=== PATIENT | female | born 1950 | race Caucasian/White ===

== ENCOUNTER 2019-01-06 11:59 | Inpatient (IN) | payer MEDICARE, MEDICAID ==
[~2019-01-06] VITALS: Ht 152.4 cm; Wt 72.6 kg
--- NOTE | 2019-01-06 12:04 | NUR ---
PT A/OX4, [facility] S[facility]P PYLORIC SPHINCTER REPAIR. PER FINISH MILL OPERATOR'S REPORT, PT ASPIRATED DURING THE PROCEDURE AND PT SPO2 DESATURATED TO LOW 80'S%. PT ARRIVED TO THE ED ON 6 LPM 02 VIA N/C. SPO2 @ 100% ON 6 LPM O2. VSS. PT DENIES SOB. NO RESPIRATORY DISTRESS NOTED AT THIS TIME. PT DENIES PAIN, C/P, N/V/D, DIZZINESS, HEADACHE.
[2019-01-06] MEDS ORDERED: SUCRALFATE (12:13)
[2019-01-06] MEDS ORDERED: PANTOPRAZOLE (12:13)
[2019-01-06] MEDS ORDERED: ALBUTEROL SULFATE 2.5 MG/3 ML NEBU NEB ONE (12:15)
[2019-01-06] MEDS ORDERED: methylPREDNISolone SOD SUCC 125 MG/2 ML VIAL IV ONE (12:15)
[2019-01-06] MEDS ORDERED: ALBUTEROL SULFATE 2.5 MG/3 ML NEBU ONE (12:16)
[2019-01-06] MEDS ORDERED: ALBUTEROL SULFATE 2.5 MG/ 0.5 ML NEBU ONE (12:16)
[2019-01-06] MEDS ORDERED: methylPREDNISolone SOD SUCC 125 MG/2 ML VIAL ONE (12:17)
--- NOTE | 2019-01-06 12:26 | NUR ---
PLUMBER SUPERVISOR AT BEDSIDE.
[2019-01-06 12:30] LABS: BASOPHILS % (AUTO) 0.3 % (0.0-2.0); EOSINOPHILS % (AUTO) 0.1 % (0.0-7.0); HEMATOCRIT 34.8 % (31.2-41.9); HEMOGLOBIN 11.5 g/dL (10.9-14.3); LYMPHOCYTES # (AUTO) 0.4 K/uL (20.0-40.0); LYMPHOCYTES % (AUTO) 4.4 % (20.5-51.5); MEAN CORPUSCULAR HEMOGLOBIN 26.7 uug (24.7-32.8); MEAN CORPUSCULAR HGB CONC 33 g/dL (32.3-35.6); MONOCYTES # (AUTO) 0.2 K/uL (2.0-10.0); MONOCYTES % (AUTO) 2.3 % (0.0-11.0); NEUTROPHILS # (AUTO) 7.7 K/uL (1.8-8.9); NEUTROPHILS % (AUTO) 92.9 % (38.5-71.5); PLATELET COUNT (AUTO) 133 K/uL (179-408); WHITE BLOOD COUNT (AUTO) 8.3 K/uL (3.8-11.8)
[2019-01-06 12:39] LABS: CARBON DIOXIDE 28 mmol/L (21-32); CHLORIDE 104 mmol/L (98-107); CREATININE 0.4 mg/dL (0.6-1.3); GLUCOSE 114 mg/dL (74-106); POTASSIUM 3.7 mmol/L (3.5-5.1); UREA NITROGEN, BLOOD 14 mg/dL (7-18)
[2019-01-06 12:50] LABS: BAND % (MANUAL) 2 % (0-10); EOSINOPHILS % (MANUAL) 2 % (0-8); LYMPHOCYTES % (MANUAL) 7 % (20-40); MONOCYTES % (MANUAL) 2 % (2-10); NEUTROPHILS % (MANUAL) 87 % (42-75)
[2019-01-06 12:51] LABS: ALANINE AMINOTRANSFERASE 23 U/L (14-59); ALKALINE PHOSPHATASE 71 U/L (50-136); ASPARTATE AMINOTRANSFERASE 14 U/L (15-37); BILIRUBIN,DIRECT 0.1 mg/dL (0.0-0.2); BILIRUBIN,TOTAL 0.3 mg/dL (0.2-1.0); TOTAL PROTEIN, SERUM 6.5 g/dL (6.4-8.2)
--- NOTE | 2019-01-06 14:16 | NUR ---
ADMITTING REPORT GIVEN TO THEODORA GARCIA.
--- NOTE | 2019-01-06 14:16 | NUR ---
Pt. admitted to [facility], under care of NICHOLAS GUILLEN. Belongs List completed
[2019-01-06] MEDS ORDERED: HYDROCODONE/APAP 5-325MG TABLET PO PRN (14:45)
[2019-01-06] MEDS ORDERED: MAGNESIUM HYDROXIDE 30 ML LIQUID UDC PO PRN (14:45)
[2019-01-06] MEDS ORDERED: ONDANSETRON 4 MG/2 ML VIAL IV PRN (14:45)
[2019-01-06] MEDS ORDERED: ACETAMINOPHEN 325 MG TABLET PO PRN (14:45)
[2019-01-06] MEDS ORDERED: ZOLPIDEM 5 MG TABLET PO PRN (14:45)
[2019-01-06] MEDS ORDERED: ALBUTEROL SULFATE 2.5 MG/ 0.5 ML NEBU NEB PRN (14:45)
[2019-01-06] MEDS ORDERED: MORPHINE SULFATE 2 MG/1 ML DISP.SYRIN IV PRN (14:45)
[2019-01-06] MEDS ORDERED: IPRATROPIUM BROMIDE 0.5 MG/2.5 ML NEBU NEB PRN (14:45)
[2019-01-06] MEDS ORDERED: Z GUARD REMEDY PASTE 57 GM TUBE TOP PRN (14:45)
--- NOTE | 2019-01-06 15:00 | NUR ---
RECEIVED PATIENT FROM ER VIA GURNEY, WITH IV ON THE RIGHT WRIST INTACT AND PATENT, NO C/O PAIN OR DISCOMFORT NOTED, NO S/S OF ACUTE DISTRESS NOTED. ON OXYGEN @ 6LPM VIA NASAL CANNULA, PATIENT ON LOW BED POSITION WITH SIDE RAILS UP X2 AND HOB ELEVATED. WILL CONTINUE TREATMENT PLAN.
[2019-01-06] MEDS: ENOXAPARIN SODIUM 40 MG/0.4 ML DISP.SYRIN SQ SCH (16:11)
[2019-01-06] MEDS: CEFTRIAXONE 1 G in IV DEXTROSE 5% 50 ML IV SCH (16:11)
[2019-01-06] MEDS: AZITHROMYCIN IV 500 MG in IV DEXTROSE 5% 250 ML IV SCH (16:12)
[2019-01-06] MEDS: IV NS 1000 ML 1,000 ML IV PRN (16:13)
[2019-01-06] MEDS: SUCRALFATE 1 G TABLET PO SCH ×2 (16:30→22:40)
[2019-01-06 18:13] VITALS: BP 93/41
--- NOTE | 2019-01-06 18:49 | NUR ---
PATIENT IN BED LAYING COMFORTABLY WITH BED IN LOW POSITION, SIDE RAIL UP X2, NO S/S OF SOB, NO C/O PAIN AT THIS TIME. REFUSED DINNER , BUT HAD SOME FLUIDS, ENCOURAGE TO EAT STII PATIENT REFUSED. IV ON RIGHT WRIST WITH CONTINUOS FLUID AT 75CC/HR.. WILL CONTINUE TREATMENT WITH NIGHT NURSE.
[2019-01-06 20:00] VITALS: BP 92/57
[2019-01-06] MEDS: methylPREDNISolone SOD SUCC 40 MG/ML VIAL IV SCH (22:43)
[2019-01-07] VITALS: BP 98/57
[2019-01-07 04:01] VITALS: BP 97/57
[2019-01-07 06:37] LABS: BASOPHILS % (AUTO) 0.1 % (0.0-2.0); HEMATOCRIT 33.4 % (31.2-41.9); LYMPHOCYTES # (AUTO) 0.4 K/uL (20.0-40.0); LYMPHOCYTES % (AUTO) 2.8 % (20.5-51.5); MEAN CORPUSCULAR HEMOGLOBIN 26.5 uug (24.7-32.8); MEAN CORPUSCULAR HGB CONC 33 g/dL (32.3-35.6); MONOCYTES # (AUTO) 0.3 K/uL (2.0-10.0); MONOCYTES % (AUTO) 2.4 % (0.0-11.0); NEUTROPHILS # (AUTO) 13.8 K/uL (1.8-8.9); NEUTROPHILS % (AUTO) 94.7 % (38.5-71.5); PLATELET COUNT (AUTO) 137 K/uL (179-408); RED BLOOD CELL COUNT(AUTO) 4.13 MIL/uL (3.63-4.92); WHITE BLOOD COUNT (AUTO) 14.6 K/uL (3.8-11.8)
[2019-01-07 06:51] LABS: ALANINE AMINOTRANSFERASE 21 U/L (14-59); ALKALINE PHOSPHATASE 52 U/L (50-136); ASPARTATE AMINOTRANSFERASE 14 U/L (15-37); BILIRUBIN,TOTAL 0.3 mg/dL (0.2-1.0); CARBON DIOXIDE 26 mmol/L (21-32); CHLORIDE 106 mmol/L (98-107); CHOLESTEROL 177 mg/dL (<200); CREATININE 0.4 mg/dL (0.6-1.3); GLUCOSE 141 mg/dL (74-106); HDL CHOLESTEROL 103 mg/dL (40-60); MAGNESIUM 1.8 mg/dL (1.8-2.4); PHOSPHOROUS 3.9 mg/dL (2.5-4.9); POTASSIUM 4.1 mmol/L (3.5-5.1); TOTAL PROTEIN, SERUM 6.4 g/dL (6.4-8.2); TRIGLYCERIDES 33 MG/DL (30-150); UREA NITROGEN, BLOOD 11 mg/dL (7-18)
--- NOTE | 2019-01-07 07:05 | NUR ---
report taken from meat cutter,assessment is done, patient is awake,alert and oriented x4,watching TV,no s/s distress, safe and comfort measures was done, bed in low position, locked,call light in reach, side rails up x2,will continue to monitor
[2019-01-07] MEDS: SUCRALFATE 1 G TABLET PO SCH ×4 (07:23→20:53)
[2019-01-07] MEDS: PANTOPRAZOLE SODIUM 40 MG TABLET.DR PO SCH (07:23)
[2019-01-07 07:48] LABS: BAND % (MANUAL) 23 % (0-10); LYMPHOCYTES % (MANUAL) 1 % (20-40); MONOCYTES % (MANUAL) 2 % (2-10); NEUTROPHILS % (MANUAL) 74 % (42-75)
[2019-01-07 09:35] LABS: THYROID STIMULATING HORMONE 0.856 mIU/mL (0.358-3.740)
[2019-01-07] MEDS: methylPREDNISolone SOD SUCC 40 MG/ML VIAL IV SCH ×2 (09:51→20:53)
[2019-01-07 11:52] VITALS: BP 110/67
[2019-01-07 16:07] VITALS: BP 97/58
[2019-01-07] MEDS: ENOXAPARIN SODIUM 40 MG/0.4 ML DISP.SYRIN SQ SCH (16:22)
[2019-01-07] MEDS: AZITHROMYCIN IV 500 MG in IV DEXTROSE 5% 250 ML IV SCH (16:39)
[2019-01-07] MEDS: CEFTRIAXONE 1 G in IV DEXTROSE 5% 50 ML IV SCH (16:39)
[2019-01-07] MEDS ORDERED: IOHEXOL 300MG/ML 100 ML INFUS..BTL ONE (17:00)
[2019-01-07] MEDS ORDERED: SWABABLE VALVE TRANSFER SET EA MC ONE (17:00)
[2019-01-07] MEDS ORDERED: NORMAL SALINE FLUSH 10 ML DISP.SYRIN ONE (17:00)
[2019-01-07] MEDS ORDERED: IV NORMAL SALINE 250 ML IV ONE (17:01)
--- NOTE | 2019-01-07 18:24 | NUR ---
patient is stable, no s/s distress, CT scan has been done per MD order, diet changed from NPO to clear liquid , tolorated well, no N/V , she stated feels good, no pain during swallowing,
--- NOTE | 2019-01-07 19:45 | NUR ---
RECEIVED PATIENT AWAKE AND ALERT IN BED. IN NO ACUTE DISTRESS. NO COMPLAINTS OF PAIN OR SOB, PATIENT IS ON 6L NC. NO COMPLAINTS OF NAUSEA OR VOMITING. IVF RUNNING ON THE RIGHT FOREARM. SAFETY MEASURES INITIATED. BED IS LOW AND LOCKED, CALL LIGHT IS WITHIN REACH. WILL CONTINUE TO MONITOR.
[2019-01-07 20:00] VITALS: BP 103/67
[2019-01-07 20:21] LABS: *BILIRUBIN,URIN NEGATIVE (NEGATIVE); *BLOOD, URINE NEGATIVE (NEGATIVE); *CLARITY,URINE CLEAR (CLEAR); *COLOR,URINE LIGHT YELLOW (YELLOW); *KETONES,URINE NEGATIVE (NEGATIVE); *UROBILINOGEN,URINE 0.2 E.U./dl (NORMAL); LEUKOCYTE ESTERASE ,URINE NEGATIVE (NEGATIVE); NITRITE, URINE NEGATIVE (NEGATIVE); PH,URINE 5.5 (5.0-8.0); UGLUCOSE NEGATIVE (NEGATIVE)
[2019-01-07 20:29] LABS: SQUAMOUS EPITHELIAL CELL,UR FEW /HPF (NONE SEEN); WBC,URINE 0-3 /HPF (0-3)
[2019-01-07] MEDS: IV NS 1000 ML 1,000 ML IV PRN (23:59)
[2019-01-08 00:15] VITALS: BP 92/50
--- NOTE | 2019-01-08 05:32 | NUR ---
INFORMATION SENT: FACESHEET,PROGRESS NOTES 01/07,UR 01-07 INSURANCE NAME: TYESHA LOCK/JESS[employer] FAX NUMBER: [phone]/ [phone] FAX SENT
[2019-01-08 06:27] VITALS: BP 99/42
[2019-01-08] MEDS: PANTOPRAZOLE SODIUM 40 MG TABLET.DR PO SCH (06:40)
[2019-01-08] MEDS: SUCRALFATE 1 G TABLET PO SCH ×4 (06:40→21:29)
--- NOTE | 2019-01-08 06:52 | NUR ---
Patient slept well throughout night. Patient thought she was still getting endoscopic procedure done today, but informed her that her doctor, Dr. Bacon, will due the procedure after you are discharged and she verbalized understanding. No signs of acute distress noted. No complaints of N/V. No complaints of pain. All needs were met, all medications given as ordered.
[2019-01-08] MEDS: methylPREDNISolone SOD SUCC 40 MG/ML VIAL IV SCH ×2 (09:36→21:28)
[2019-01-08 11:33] VITALS: BP 105/63
[2019-01-08 13:28] LABS: BASOPHILS % (AUTO) 0.3 % (0.0-2.0); HEMATOCRIT 33.4 % (31.2-41.9); HEMOGLOBIN 10.9 g/dL (10.9-14.3); LYMPHOCYTES # (AUTO) 0.3 K/uL (20.0-40.0); MEAN CORPUSCULAR HEMOGLOBIN 26.3 uug (24.7-32.8); MEAN CORPUSCULAR HGB CONC 33 g/dL (32.3-35.6); MEAN CORPUSCULAR VOLUME 80.7 fL (75.5-95.3); MONOCYTES # (AUTO) 0.1 K/uL (2.0-10.0); MONOCYTES % (AUTO) 1.2 % (0.0-11.0); NEUTROPHILS # (AUTO) 10.7 K/uL (1.8-8.9); NEUTROPHILS % (AUTO) 95.5 % (38.5-71.5); PLATELET COUNT (AUTO) 137 K/uL (179-408); RED BLOOD CELL COUNT(AUTO) 4.14 MIL/uL (3.63-4.92); WHITE BLOOD COUNT (AUTO) 11.2 K/uL (3.8-11.8)
[2019-01-08 13:32] LABS: CARBON DIOXIDE 26 mmol/L (21-32); CHLORIDE 104 mmol/L (98-107); CREATININE 0.4 mg/dL (0.6-1.3); GLUCOSE 129 mg/dL (74-106); POTASSIUM 3.8 mmol/L (3.5-5.1); UREA NITROGEN, BLOOD 13 mg/dL (7-18)
[2019-01-08 13:35] LABS: IRON, SERUM 57 ug/dL (50-175)
[2019-01-08 13:38] LABS: ALANINE AMINOTRANSFERASE 18 U/L (14-59); ALKALINE PHOSPHATASE 49 U/L (50-136); ASPARTATE AMINOTRANSFERASE 13 U/L (15-37); BILIRUBIN,TOTAL 0.3 mg/dL (0.2-1.0); MAGNESIUM 2.1 mg/dL (1.8-2.4); TOTAL PROTEIN, SERUM 6.5 g/dL (6.4-8.2)
[2019-01-08] MEDS: BISACODYL 10 MG SUPP.RECT RC PRN ×2 (14:44→21:29)
[2019-01-08 15:43] VITALS: BP 109/61
[2019-01-08] MEDS: ENOXAPARIN SODIUM 40 MG/0.4 ML DISP.SYRIN SQ SCH (15:45)
[2019-01-08] MEDS: CEFTRIAXONE 1 G in IV DEXTROSE 5% 50 ML IV SCH (17:02)
[2019-01-08] MEDS: AZITHROMYCIN IV 500 MG in IV DEXTROSE 5% 250 ML IV SCH (17:02)
[2019-01-08] MEDS: IV NS 1000 ML 1,000 ML IV PRN (17:08)
--- NOTE | 2019-01-08 19:03 | NUR ---
Patient has been cooperative with care, all needs met. patient had a very small stool after suppository. Patient signed consent for surgery tomorrow and will be NPO after midnight. Currently in bed, no distress noted, call light in reach.
[2019-01-08 19:24] VITALS: BP 105/67
--- NOTE | 2019-01-08 19:45 | NUR ---
PATIENT AWAKE ALERT, NO SOB NO CHEST PAIN NOTED, PATIENT HAS ONE SMALL BOWEL MOVEMENT. REMIND PATIENT THAT AFTER MIDNIGHT SHE NOT DRINK NOR EAT FOOD AFTER MIDNIGHT. PATIENT ABLE TO FOLLOW INSTRUCTION. WILL CONT TO MONITOR.
[2019-01-09 03:30] VITALS: BP 116/63
[2019-01-09 05:38] LABS: BASOPHILS % (AUTO) 0.3 % (0.0-2.0); EOSINOPHILS % (AUTO) 0.2 % (0.0-7.0); HEMATOCRIT 32.7 % (31.2-41.9); HEMOGLOBIN 10.9 g/dL (10.9-14.3); LYMPHOCYTES # (AUTO) 0.5 K/uL (20.0-40.0); LYMPHOCYTES % (AUTO) 7.1 % (20.5-51.5); MEAN CORPUSCULAR HEMOGLOBIN 26.8 uug (24.7-32.8); MEAN CORPUSCULAR HGB CONC 33 g/dL (32.3-35.6); MEAN CORPUSCULAR VOLUME 80.4 fL (75.5-95.3); MONOCYTES # (AUTO) 0.1 K/uL (2.0-10.0); NEUTROPHILS # (AUTO) 6.9 K/uL (1.8-8.9); NEUTROPHILS % (AUTO) 90.4 % (38.5-71.5); PLATELET COUNT (AUTO) 136 K/uL (179-408); RED BLOOD CELL COUNT(AUTO) 4.07 MIL/uL (3.63-4.92); WHITE BLOOD COUNT (AUTO) 7.6 K/uL (3.8-11.8)
[2019-01-09 05:58] LABS: CREATININE 0.5 mg/dL (0.6-1.3); PHOSPHOROUS 3.7 mg/dL (2.5-4.9); POTASSIUM 4.4 mmol/L (3.5-5.1)
--- NOTE | 2019-01-09 06:06 | NUR ---
PATIENT SLEPT MOST OF THE NIGHT, NO SOB NO CHEST PAIN, PATIENT HAS SMALL BM AGAIN AFTER SUPPOSITORIES GIVEN. REMAINS NPO EXCEPT FOR MEDICATIONS DUE TO PROCEDURES OF EGD, CONSENTS WAS SIGNED. CALL LIGHT WITHIN THE REACH.
[2019-01-09] MEDS: PANTOPRAZOLE SODIUM 40 MG TABLET.DR PO SCH (06:24)
[2019-01-09] MEDS: SUCRALFATE 1 G TABLET PO SCH ×2 (07:30→11:30)
--- NOTE | 2019-01-09 07:30 | NUR ---
Received report from retail support specialist nurse, patient in bed awake, no distress noted at this time. Bed in low position, side rails up x2. Call light in reach..
[2019-01-09 11:10] VITALS: BP 126/63
[2019-01-09] MEDS ORDERED: PROPOFOL 200 MG/20 ML BOTTLE IV ONE (14:03)
[2019-01-09] MEDS ORDERED: SUCCINYLCHOLINE CHLORIDE 200 MG/10 ML VIAL MC ONE (14:03)
[2019-01-09] MEDS ORDERED: IRR STERIL WATER FOR IRR 1000 ML BOTTLE IR ONE (14:03)
[2019-01-09] MEDS ORDERED: LIDOCAINE HCL 2% 20 ML VIAL MC ONE (14:03)
[2019-01-09] MEDS ORDERED: IV NORMAL SALINE 1000 ML BAG IV ONE (14:03)
[2019-01-09 14:48] VITALS: BP 134/76
[2019-01-09] MEDS ORDERED: LEVO500T2 PO (15:33)
[2019-01-09] MEDS ORDERED: PANT40TA2 PO (15:33)
[2019-01-09] MEDS ORDERED: SUCR1TAB PO (15:33)
--- NOTE | 2019-01-09 16:47 | NUR ---
DISCHARGE INSTRUCTIONS GIVEN, PRESCRIPTION GIVEN, AND IV REMOVED. ALL QUESTIONS ANSWERED, PATIENT DISCHARGED TO [facility]PER[facility] AREA TO . NO DISTRESS NOTED AT TIME OF DISCHARGE, ALL BELONGINGS ACCOUNTED FOR.
[2019-01-09] MEDS ORDERED: PANTOPRAZOLE SODIUM 40 MG TABLET.DR PO SCH (17:00)
[2019-01-09] MEDS ORDERED: PANTOPRAZOLE SODIUM 40 MG VIAL IV SCH (21:00)
--- NOTE | 2019-01-11 05:31 | NUR ---
INFORMATION SENT: FACESHEET,PROGRESS NOTES 01/08,01/09,UR 01-08,01-09 INSURANCE NAME: TYESHA LOCK/EJSS/[employer] [facility] [employer] FAX NUMBER: [phone] / [phone] FAX SENT
== END 2019-01-09 17:00 | disposition home or self-care (01) | DRG 720 ==
LOC: ER 11:59 → TELE3 14:28 → MEDSURG3 01-08 16:08
PROVIDERS: ADMIT Nurse Practitioner Acute Care; ATTEND Nurse Practitioner Acute Care
PROC: 0D968ZZ Drainage of Stomach, Via Natural or Artificial Opening Endoscopic (ICD-10-PCS; principal; 2019-01-08)
PROC: 0DB78ZX Excision of Stomach, Pylorus, Via Natural or Artificial Opening Endoscopic, Diagnostic (ICD-10-PCS; principal; 2019-01-08)
PROC: 0D778ZZ Dilation of Stomach, Pylorus, Via Natural or Artificial Opening Endoscopic (ICD-10-PCS; principal; 2019-01-08)
DX: A41.9 Sepsis, unspecified organism (principal); J96.01 Acute respiratory failure with hypoxia; J69.0 Pneumonitis due to inhalation of food and vomit; K31.1 Adult hypertrophic pyloric stenosis; D69.6 Thrombocytopenia, unspecified; K31.84 Gastroparesis; N13.30 Unspecified hydronephrosis; R65.20 Severe sepsis without septic shock; K56.41 Fecal impaction; R73.03 Prediabetes; K25.9 Gastric ulcer, unspecified as acute or chronic, without hemorrhage or perforation; K29.70 Gastritis, unspecified, without bleeding; Z92.21 Personal history of antineoplastic chemotherapy; Z85.72 Personal history of non-Hodgkin lymphomas; E66.9 Obesity, unspecified; Z68.31 Body mass index [BMI] 31.0-31.9, adult; K21.9 Gastro-esophageal reflux disease without esophagitis; T45.1X5A Adverse effect of antineoplastic and immunosuppressive drugs, initial encounter; Y92.89 Other specified places as the place of occurrence of the external cause; M19.90 Unspecified osteoarthritis, unspecified site; R94.31 Abnormal electrocardiogram [ECG] [EKG]; E78.5 Hyperlipidemia, unspecified
CPT/HCPCS: 36415; 70030-TC; 71045; 83550; 83605; 83735; 84100; 84443; 85025; 87040; 87086; 88342; 92526; 92610; 93005; A4217; A4663; G0378; J0330; J0456; J0696; J1650; J2920; J2930; J3490; J7030; J7050; J7060; Q9967

== ENCOUNTER 2019-05-28 06:39 | Day surgery (SDC) | payer MEDICARE, MEDICAID ==
[~2019-05-28 06:39] MED LIST: LEVO500T2 PO; PANT40TA2 PO; PANTOPRAZOLE; SUCR1TAB PO; SUCRALFATE
[2019-05-28] MEDS ORDERED: IV NORMAL SALINE 1000 ML BAG IV ONE (06:40)
[2019-05-28] MEDS ORDERED: PROPOFOL 200 MG/20 ML BOTTLE IV ONE (06:40)
[2019-05-28] MEDS ORDERED: LIDOCAINE-MPF 2% 5 ML VIAL IJ ONE (06:40)
[2019-05-28] MEDS ORDERED: IV LACTATED RINGERS SOLUTION 1,000 ML BAG IV ONE (06:40)
[2019-05-28 07:21] LABS: BASOPHILS % (AUTO) 0.6 % (0.0-2.0); EOSINOPHILS # (AUTO) 0.1 K/uL (0.0-0.7); EOSINOPHILS % (AUTO) 1.9 % (0.0-7.0); HEMATOCRIT 34.9 % (31.2-41.9); HEMOGLOBIN 11.8 g/dL (10.9-14.3); LYMPHOCYTES # (AUTO) 1.1 K/uL (20.0-40.0); LYMPHOCYTES % (AUTO) 27.1 % (20.5-51.5); MEAN CORPUSCULAR HEMOGLOBIN 27.3 uug (24.7-32.8); MEAN CORPUSCULAR HGB CONC 34 g/dL (32.3-35.6); MEAN CORPUSCULAR VOLUME 80.6 fL (75.5-95.3); MONOCYTES # (AUTO) 0.6 K/uL (2.0-10.0); MONOCYTES % (AUTO) 14.2 % (0.0-11.0); NEUTROPHILS # (AUTO) 2.2 K/uL (1.8-8.9); NEUTROPHILS % (AUTO) 56.2 % (38.5-71.5); PLATELET COUNT (AUTO) 171 K/uL (179-408); RED BLOOD CELL COUNT(AUTO) 4.33 MIL/uL (3.63-4.92); WHITE BLOOD COUNT (AUTO) 3.9 K/uL (3.8-11.8)
[2019-05-28 07:22] LABS: *BILIRUBIN,URIN NEGATIVE (NEGATIVE); *BLOOD, URINE 1+ (NEGATIVE); *CLARITY,URINE CLEAR (CLEAR); *COLOR,URINE YELLOW (YELLOW); *KETONES,URINE NEGATIVE (NEGATIVE); *UROBILINOGEN,URINE 0.2 E.U./dl (NORMAL); LEUKOCYTE ESTERASE ,URINE NEGATIVE (NEGATIVE); NITRITE, URINE NEGATIVE (NEGATIVE); UGLUCOSE NEGATIVE (NEGATIVE)
[2019-05-28 07:23] LABS: CARBON DIOXIDE 27 mmol/L (21-32); CHLORIDE 102 mmol/L (98-107); CREATININE 0.4 mg/dL (0.6-1.3); GLUCOSE 103 mg/dL (74-106); UREA NITROGEN, BLOOD 14 mg/dL (7-18)
[2019-05-28 07:32] LABS: BACTERIA,URINE NONE SEEN /HPF (NONE SEEN); WBC,URINE 0-3 /HPF (0-3)
[2019-05-28 07:33] LABS: MUCUS,URINE FEW /LPF (0-FEW); SQUAMOUS EPITHELIAL CELL,UR FEW /HPF (NONE SEEN)
== END 2019-05-28 10:45 | disposition home or self-care (01) ==
LOC: DS 06:39
PROVIDERS: ATTEND Surgery
DX: K31.1 Adult hypertrophic pyloric stenosis (principal); M19.90 Unspecified osteoarthritis, unspecified site; D64.9 Anemia, unspecified; R00.0 Tachycardia, unspecified; F15.90 Other stimulant use, unspecified, uncomplicated; E78.5 Hyperlipidemia, unspecified; K21.9 Gastro-esophageal reflux disease without esophagitis; E66.9 Obesity, unspecified; Z68.31 Body mass index [BMI] 31.0-31.9, adult; Z79.899 Other long term (current) drug therapy; Z79.01 Long term (current) use of anticoagulants; Z85.72 Personal history of non-Hodgkin lymphomas; Z92.21 Personal history of antineoplastic chemotherapy
CPT/HCPCS: 36415; 85025; 85730; 93005; A4217; A4663; J3490; J7030; J7120

== ENCOUNTER 2021-02-16 06:40 | Outpatient (CLI) | payer MEDICARE, OTHER | END 2021-02-16 23:59 | disposition home or self-care (01) | LOC: LAB 06:40 | PROVIDERS: ATTEND Surgery | DX: Z01.812 Encounter for preprocedural laboratory examination (principal); Z20.822 Contact with and (suspected) exposure to COVID-19 ==

== ENCOUNTER 2021-02-19 09:24 | Day surgery (SDC) | payer MEDICARE, OTHER ==
[2021-02-19] MEDS ORDERED: PROPOFOL 200 MG/20 ML BOTTLE IV ONE (09:25)
[2021-02-19 10:07] LABS: BASOPHILS % (AUTO) 0.5 % (0.0-2.0); EOSINOPHILS # (AUTO) 0.1 K/uL (0.0-0.7); EOSINOPHILS % (AUTO) 1.3 % (0.0-7.0); HEMATOCRIT 40.9 % (31.2-41.9); HEMOGLOBIN 13.5 g/dL (10.9-14.3); LYMPHOCYTES % (AUTO) 33.8 % (20.5-51.5); MEAN CORPUSCULAR HEMOGLOBIN 28.5 uug (24.7-32.8); MEAN CORPUSCULAR HGB CONC 33 g/dL (32.3-35.6); MEAN CORPUSCULAR VOLUME 86.1 fL (75.5-95.3); MONOCYTES # (AUTO) 0.8 K/uL (2.0-10.0); MONOCYTES % (AUTO) 8.7 % (0.0-11.0); NEUTROPHILS % (AUTO) 55.7 % (38.5-71.5); PLATELET COUNT (AUTO) 209 K/uL (179-408); RED BLOOD CELL COUNT(AUTO) 4.75 MIL/uL (3.63-4.92)
[2021-02-19 10:10] LABS: CREATININE 0.6 mg/dL (0.6-1.3); POTASSIUM 3.2 mmol/L (3.5-5.1)
[2021-02-19 10:11] LABS: *BILIRUBIN,URIN NEGATIVE (NEGATIVE); *BLOOD, URINE 2+ (NEGATIVE); *CLARITY,URINE CLEAR (CLEAR); *COLOR,URINE YELLOW (YELLOW); *KETONES,URINE NEGATIVE (NEGATIVE); *UROBILINOGEN,URINE 0.2 E.U./dl (NORMAL); LEUKOCYTE ESTERASE ,URINE NEGATIVE (NEGATIVE); NITRITE, URINE NEGATIVE (NEGATIVE); PH,URINE 5.5 (5.0-8.0); UGLUCOSE NEGATIVE (NEGATIVE)
[2021-02-19 10:22] LABS: BILIRUBIN,TOTAL 0.3 mg/dL (0.2-1.0); TOTAL PROTEIN, SERUM 8.3 g/dL (6.4-8.2)
[2021-02-19 10:36] LABS: BACTERIA,URINE FEW /HPF (NONE SEEN)
[2021-02-19 10:37] LABS: SQUAMOUS EPITHELIAL CELL,UR MODERATE /HPF (NONE SEEN)
== END 2021-02-19 14:05 | disposition home or self-care (01) ==
LOC: DS 09:24
PROVIDERS: ATTEND Surgery
DX: K62.5 Hemorrhage of anus and rectum (principal); R10.13 Epigastric pain; K21.9 Gastro-esophageal reflux disease without esophagitis; I48.91 Unspecified atrial fibrillation; M19.90 Unspecified osteoarthritis, unspecified site; E78.00 Pure hypercholesterolemia, unspecified; Z79.899 Other long term (current) drug therapy; Z98.890 Other specified postprocedural states; Z87.11 Personal history of peptic ulcer disease
CPT/HCPCS: 36415; 43239; 80053; 81001; 85025; 85730; 93005; J7120; 88313-TC; 88342; A4217; A4663; J3490